=== PATIENT | female | born 1955 | race African-American/Black ===

== ENCOUNTER 2018-01-02 16:48 | Inpatient (IN) | payer MEDICARE ==
[~2018-01-02] VITALS: Ht 152.4 cm; Wt 59.9 kg
[~2018-01-02 16:48] MED LIST: ACET-784 PO; ACID1GRA PO; AMIN30LI28 PO; AMLO-511 PO; AMLO-512 PO; ASPI-556 PO; ATOR20TA86 PO; AUD NEB; BUDE0.5A3 NEB; CALC667C PO; DOXA2TAB PO; EPOE4000 SQ; FOLI1CAP2 PO; FURO80TA3 PO; HYDR25TA84 PO; IPRNEB NEB; LABE100 PO; LEVE500T53 PO; LORA0.5T2 PO; LOSA50TA37 PO; METO25 PO; PANT40TA25 PO; PRAV40TA4 PO; [UNRECOGNIZED DRUG - CODE] IVPB
[2018-01-02 17:30] VITALS: BP 150/73
[2018-01-02] MEDS ORDERED: ACETAMINOPHEN 325 MG TABLET PO PRN (17:45)
[2018-01-02] MEDS ORDERED: EPOE10IM SQ (17:56)
[2018-01-02] MEDS ORDERED: ALBUMIN HUMAN 25%-12.5GM/50ML 50 ML IV PRN (18:45)
[2018-01-02] MEDS ORDERED: LORazepam 0.5 MG TABLET PO PRN (18:45)
[2018-01-02] MEDS ORDERED: ALBUTEROL SULFATE 2.5 MG/0.5 ML NEB SOLUTION NEB PRN (18:45)
[2018-01-02] MEDS ORDERED: IPRATROPIUM BROMIDE 0.5 MG/2.5 ML NEB SOLUTION NEB PRN (18:45)
[2018-01-02 20:12] VITALS: BP 145/71
[2018-01-02] MEDS: OXYGEN THERAPY IH SCH (20:13)
[2018-01-02] MEDS: METOPROLOL TARTRATE 25 MG TABLET PO SCH (20:14)
[2018-01-02] MEDS: ATORVASTATIN CALCIUM 20 MG TABLET PO SCH (20:14)
[2018-01-02] MEDS: LACTOBACILLUS ACIDOPHILUS/BULGARICUS GRANULES PACKET PO SCH (20:14)
[2018-01-02] MEDS: LevETIRAcetam 500 MG TABLET PO SCH (20:14)
[2018-01-02] MEDS: BUDESONIDE 0.5 MG/2 ML NEB SOLUTION NEB SCH (22:36)
[2018-01-02 23:30] VITALS: BP 159/89
[2018-01-03] MEDS: AMINO ACIDS/PROTEIN HYDROLYS 30 ML TUBE PO SCH (07:30)
[2018-01-03 07:45] VITALS: BP 140/69
[2018-01-03] MEDS: OXYGEN THERAPY IH SCH ×2 (08:00→21:28)
[2018-01-03] MEDS: LevETIRAcetam 500 MG TABLET PO SCH ×2 (08:01→21:28)
[2018-01-03] MEDS: LACTOBACILLUS ACIDOPHILUS/BULGARICUS GRANULES PACKET PO SCH ×3 (08:01→21:28)
[2018-01-03] MEDS: AmLODIPine BESYLATE 5 MG TABLET PO SCH (08:02)
[2018-01-03] MEDS: PANTOPRAZOLE SODIUM 40 MG DR TABLET PO SCH (08:02)
[2018-01-03] MEDS: VITAMIN B COMP/VIT C/FOLIC ACID CAPSULE PO SCH (08:02)
[2018-01-03] MEDS: ASPIRIN 81 MG CHEWABLE TABLET PO SCH (08:03)
[2018-01-03] MEDS: METOPROLOL TARTRATE 25 MG TABLET PO SCH ×2 (08:04→21:28)
[2018-01-03] MEDS: BUDESONIDE 0.5 MG/2 ML NEB SOLUTION NEB SCH (08:14)
[2018-01-03 08:32] LABS: BASOPHILS % (AUTO) 0.8 % (0.0-2.0); EOSINOPHILS % (AUTO) 3.1 % (1.0-6.0); HEMOGLOBIN 11.7 g/dL (12.0-16.0); LYMPHOCYTES # (AUTO) 2.2 K/uL (1.0-4.8); LYMPHOCYTES % (AUTO) 19.4 % (22.0-44.0); MEAN CORPUSCULAR HEMOGLOBIN 25.4 pg (26.0-34.0); MEAN CORPUSCULAR HGB CONC 33.4 G/dL (31.0-37.0); MEAN CORPUSCULAR VOLUME 76 fL (80-100); MONOCYTES # (AUTO) 0.8 K/uL (0.1-1.0); MONOCYTES % (AUTO) 7.3 % (2.0-9.0); NEUTROPHILS # (AUTO) 7.9 K/uL (1.8-7.7); NEUTROPHILS % (AUTO) 69.4 % (40.0-70.0); PLATELET COUNT (AUTO) 403 K/uL (150-450); RED BLOOD CELL COUNT(AUTO) 4.61 MIL/uL (4.00-5.20)
[2018-01-03 08:51] LABS: ALBUMIN 3.5 g/dL (3.4-5.0); BILIRUBIN,TOTAL 0.4 mg/dL (0.1-1.0); CALCIUM, TOTAL 9.7 mg/dL (8.8-10.5); CREATININE 5.78 mg/dL (0.60-1.30); POTASSIUM 3.5 mmol/L (3.5-5.1); TOTAL PROTEIN, SERUM 8.2 g/dL (6.4-8.2)
[2018-01-03 15:20] VITALS: BP 118/68
[2018-01-03] MEDS: ATORVASTATIN CALCIUM 20 MG TABLET PO SCH (21:28)
[2018-01-03 21:30] VITALS: BP 160/90
[2018-01-04] VITALS (7 sets, daily range): BP systolic 146–185; BP diastolic 56–92
[2018-01-04] MEDS ORDERED: SODIUM CHLORIDE 0.9% 2,000 ML IV ONE (06:53)
[2018-01-04] MEDS: AMINO ACIDS/PROTEIN HYDROLYS 30 ML TUBE PO SCH (07:30)
[2018-01-04] MEDS: OXYGEN THERAPY IH SCH ×2 (08:00→20:33)
[2018-01-04] MEDS: BUDESONIDE 0.5 MG/2 ML NEB SOLUTION NEB SCH ×2 (09:00→23:36)
[2018-01-04] MEDS: LACTOBACILLUS ACIDOPHILUS/BULGARICUS GRANULES PACKET PO SCH ×4 (09:00→20:34)
[2018-01-04] MEDS: LevETIRAcetam 500 MG TABLET PO SCH ×2 (12:03→20:33)
[2018-01-04] MEDS: PANTOPRAZOLE SODIUM 40 MG DR TABLET PO SCH (12:03)
[2018-01-04] MEDS: ASPIRIN 81 MG CHEWABLE TABLET PO SCH (12:03)
[2018-01-04] MEDS: AmLODIPine BESYLATE 5 MG TABLET PO SCH (12:03)
[2018-01-04] MEDS: VITAMIN B COMP/VIT C/FOLIC ACID CAPSULE PO SCH (12:04)
[2018-01-04] MEDS: METOPROLOL TARTRATE 25 MG TABLET PO SCH ×2 (12:04→20:33)
[2018-01-04] MEDS ORDERED: LIDOCAINE HCL/PF 1% 2 ML VIAL IM ONE (18:19)
[2018-01-04] MEDS: ATORVASTATIN CALCIUM 20 MG TABLET PO SCH (20:33)
[2018-01-05 07:05] VITALS: BP 146/64
[2018-01-05] MEDS: OXYGEN THERAPY IH SCH ×2 (08:00→19:26)
[2018-01-05] MEDS: LACTOBACILLUS ACIDOPHILUS/BULGARICUS GRANULES PACKET PO SCH ×4 (08:05→19:51)
[2018-01-05] MEDS: AmLODIPine BESYLATE 5 MG TABLET PO SCH (08:05)
[2018-01-05] MEDS: LevETIRAcetam 500 MG TABLET PO SCH ×2 (08:05→19:51)
[2018-01-05] MEDS: EPOETIN ALFA 10,000 UNITS/ML 2 ML VIAL SQ SCH (08:05)
[2018-01-05] MEDS: METOPROLOL TARTRATE 25 MG TABLET PO SCH ×2 (08:06→19:51)
[2018-01-05] MEDS: VITAMIN B COMP/VIT C/FOLIC ACID CAPSULE PO SCH (08:06)
[2018-01-05] MEDS: PANTOPRAZOLE SODIUM 40 MG DR TABLET PO SCH (08:06)
[2018-01-05] MEDS: ASPIRIN 81 MG CHEWABLE TABLET PO SCH (08:07)
[2018-01-05] MEDS: BUDESONIDE 0.5 MG/2 ML NEB SOLUTION NEB SCH ×2 (12:48→19:22)
[2018-01-05 15:41] VITALS: BP 152/74
[2018-01-05] MEDS ORDERED: AMLO-512 PO (18:46)
[2018-01-05] MEDS ORDERED: HYDR25TA84 PO (18:46)
[2018-01-05] MEDS ORDERED: PHOSLOC PO (18:46)
[2018-01-05] MEDS ORDERED: FURO80 PO (18:46)
[2018-01-05] MEDS ORDERED: PRAV40TA4 PO (18:49)
[2018-01-05] MEDS ORDERED: LOSA50TA37 PO (18:49)
[2018-01-05] MEDS ORDERED: LABE200T PO (18:49)
[2018-01-05] MEDS: ATORVASTATIN CALCIUM 20 MG TABLET PO SCH (19:51)
[2018-01-05 19:53] VITALS: BP 152/73
[2018-01-05 23:22] VITALS: BP 127/92
[2018-01-06 07:19] VITALS: BP 155/98
[2018-01-06] MEDS: OXYGEN THERAPY IH SCH ×2 (08:00→20:00)
[2018-01-06] MEDS: VITAMIN B COMP/VIT C/FOLIC ACID CAPSULE PO SCH (08:05)
[2018-01-06] MEDS: LACTOBACILLUS ACIDOPHILUS/BULGARICUS GRANULES PACKET PO SCH ×2 (08:05→08:19)
[2018-01-06] MEDS: METOPROLOL TARTRATE 25 MG TABLET PO SCH ×2 (08:05→20:34)
[2018-01-06] MEDS: AmLODIPine BESYLATE 5 MG TABLET PO SCH (08:05)
[2018-01-06] MEDS: ASPIRIN 81 MG CHEWABLE TABLET PO SCH (08:05)
[2018-01-06] MEDS: LOSARTAN POTASSIUM 50 MG TABLET PO SCH (08:05)
[2018-01-06] MEDS: LevETIRAcetam 500 MG TABLET PO SCH ×2 (08:05→20:35)
[2018-01-06] MEDS: PANTOPRAZOLE SODIUM 40 MG DR TABLET PO SCH (08:05)
[2018-01-06] MEDS: BUDESONIDE 0.5 MG/2 ML NEB SOLUTION NEB SCH ×2 (08:12→20:42)
[2018-01-06 17:00] VITALS: BP 140/62
[2018-01-06 20:25] VITALS: BP 128/64
[2018-01-06] MEDS: ATORVASTATIN CALCIUM 20 MG TABLET PO SCH (20:34)
[2018-01-06] MEDS ORDERED: 0.9% SODIUM CHLORIDE 5 ML NEB SOLUTION NEB ONE (20:38)
[2018-01-06 23:50] VITALS: BP 118/51
[2018-01-07 08:00] VITALS: BP 155/69
[2018-01-07] MEDS: OXYGEN THERAPY IH SCH ×2 (08:00→20:00)
[2018-01-07] MEDS: METOPROLOL TARTRATE 25 MG TABLET PO SCH ×2 (08:14→20:12)
[2018-01-07] MEDS: AmLODIPine BESYLATE 5 MG TABLET PO SCH (08:14)
[2018-01-07] MEDS: LevETIRAcetam 500 MG TABLET PO SCH ×2 (08:14→20:12)
[2018-01-07] MEDS: LOSARTAN POTASSIUM 50 MG TABLET PO SCH (08:14)
[2018-01-07] MEDS: ASPIRIN 81 MG CHEWABLE TABLET PO SCH (08:14)
[2018-01-07] MEDS: VITAMIN B COMP/VIT C/FOLIC ACID CAPSULE PO SCH (08:14)
[2018-01-07] MEDS: EPOETIN ALFA 10,000 UNITS/ML 2 ML VIAL SQ SCH (08:14)
[2018-01-07] MEDS: PANTOPRAZOLE SODIUM 40 MG DR TABLET PO SCH (08:14)
[2018-01-07] MEDS: BUDESONIDE 0.5 MG/2 ML NEB SOLUTION NEB SCH ×2 (09:28→21:09)
[2018-01-07 15:39] VITALS: BP 126/56
[2018-01-07] MEDS: ATORVASTATIN CALCIUM 20 MG TABLET PO SCH (20:12)
[2018-01-07 20:19] VITALS: BP 155/74
[2018-01-08 03:00] VITALS: BP 142/69
[2018-01-08 07:20] VITALS: BP 150/79
[2018-01-08] MEDS: LevETIRAcetam 500 MG TABLET PO SCH ×2 (08:07→19:48)
[2018-01-08] MEDS: PANTOPRAZOLE SODIUM 40 MG DR TABLET PO SCH (08:07)
[2018-01-08] MEDS: VITAMIN B COMP/VIT C/FOLIC ACID CAPSULE PO SCH (08:07)
[2018-01-08] MEDS: ASPIRIN 81 MG CHEWABLE TABLET PO SCH (08:07)
[2018-01-08] MEDS: OXYGEN THERAPY IH SCH ×2 (08:11→19:48)
[2018-01-08 08:19] LABS: BASOPHILS % (AUTO) 1.4 % (0.0-2.0); EOSINOPHILS % (AUTO) 2.7 % (1.0-6.0); HEMATOCRIT 32.6 % (36-46); HEMOGLOBIN 10.9 g/dL (12.0-16.0); LYMPHOCYTES % (AUTO) 18.1 % (22.0-44.0); MEAN CORPUSCULAR HEMOGLOBIN 26.1 pg (26.0-34.0); MEAN CORPUSCULAR HGB CONC 33.3 G/dL (31.0-37.0); MEAN CORPUSCULAR VOLUME 78 fL (80-100); MONOCYTES # (AUTO) 0.8 K/uL (0.1-1.0); MONOCYTES % (AUTO) 7.8 % (2.0-9.0); NEUTROPHILS # (AUTO) 7.6 K/uL (1.8-7.7); PLATELET COUNT (AUTO) 255 K/uL (150-450); RED BLOOD CELL COUNT(AUTO) 4.16 MIL/uL (4.00-5.20)
[2018-01-08 08:35] LABS: CALCIUM, TOTAL 9.5 mg/dL (8.8-10.5); CREATININE 7.25 mg/dL (0.60-1.30); MAGNESIUM 2.1 mg/dL (1.80-2.40); PHOSPHORUS 5.9 mg/dL (2.5-4.9); POTASSIUM 4.3 mmol/L (3.5-5.1)
[2018-01-08] MEDS: AmLODIPine BESYLATE 5 MG TABLET PO SCH ×2 (08:40→14:33)
[2018-01-08] MEDS: LOSARTAN POTASSIUM 50 MG TABLET PO SCH ×2 (08:40→14:33)
[2018-01-08] MEDS: METOPROLOL TARTRATE 25 MG TABLET PO SCH ×3 (08:40→19:48)
[2018-01-08 17:37] VITALS: BP 133/60
[2018-01-08] MEDS: BUDESONIDE 0.5 MG/2 ML NEB SOLUTION NEB SCH ×2 (17:42→21:00)
[2018-01-08] MEDS ORDERED: LIDOCAINE HCL/PF 1% 2 ML VIAL IM ONE (17:46)
[2018-01-08] MEDS: ATORVASTATIN CALCIUM 20 MG TABLET PO SCH (19:48)
[2018-01-08 23:17] VITALS: BP 151/65
[2018-01-09 07:05] VITALS: BP 165/78
[2018-01-09] MEDS: BUDESONIDE 0.5 MG/2 ML NEB SOLUTION NEB SCH (07:35)
[2018-01-09] MEDS: OXYGEN THERAPY IH SCH (07:36)
[2018-01-09] MEDS: ASPIRIN 81 MG CHEWABLE TABLET PO SCH (08:41)
[2018-01-09] MEDS: VITAMIN B COMP/VIT C/FOLIC ACID CAPSULE PO SCH (08:41)
[2018-01-09] MEDS: LevETIRAcetam 500 MG TABLET PO SCH (08:41)
[2018-01-09] MEDS: LOSARTAN POTASSIUM 50 MG TABLET PO SCH (08:42)
[2018-01-09] MEDS: PANTOPRAZOLE SODIUM 40 MG DR TABLET PO SCH (08:42)
[2018-01-09] MEDS: EPOETIN ALFA 10,000 UNITS/ML 2 ML VIAL SQ SCH ×2 (08:42→08:56)
[2018-01-09] MEDS: METOPROLOL TARTRATE 25 MG TABLET PO SCH (08:42)
[2018-01-09] MEDS: AmLODIPine BESYLATE 5 MG TABLET PO SCH (08:42)
== END 2018-01-09 09:02 | disposition home or self-care (01) | DRG 100 ==
LOC: 2WR 17:25
PROVIDERS: ADMIT Physical Medicine & Rehabilitation; ATTEND Physical Medicine & Rehabilitation
PROC: 5A1D70Z Performance of Urinary Filtration, Intermittent, Less than 6 Hours Per Day (ICD-10-PCS; 2018-01-04)
PROC: 5A1D70Z Performance of Urinary Filtration, Intermittent, Less than 6 Hours Per Day (ICD-10-PCS; 2018-01-06)
PROC: 5A1D70Z Performance of Urinary Filtration, Intermittent, Less than 6 Hours Per Day (ICD-10-PCS; principal; 2018-01-08)
DX: G40.909 Epilepsy, unspecified, not intractable, without status epilepticus (principal); J96.00 Acute respiratory failure, unspecified whether with hypoxia or hypercapnia; I13.2 Hypertensive heart and chronic kidney disease with heart failure and with stage 5 chronic kidney disease, or end stage renal disease; J18.9 Pneumonia, unspecified organism; N18.6 End stage renal disease; I50.9 Heart failure, unspecified; Z99.81 Dependence on supplemental oxygen; G81.94 Hemiplegia, unspecified affecting left nondominant side; J44.0 Chronic obstructive pulmonary disease with (acute) lower respiratory infection; Z87.891 Personal history of nicotine dependence; Z99.2 Dependence on renal dialysis; D64.9 Anemia, unspecified; Z51.89 Encounter for other specified aftercare
CPT/HCPCS: 83735; 84100; 87081; 90935; 94640; 97110; 97112; 97116; 97161; 97166; 97530; 97535; 99366; G0482; J0885; J3490; J7030